=== PATIENT | male | born 1990 | race Caucasian/White ===

== ENCOUNTER 2016-12-01 21:45 | Emergency (ER) | payer SELFPAY ==
[~2016-12-01] VITALS: Ht 180.3 cm; Wt 110.5 kg
[~2016-12-01 21:45] MED LIST: AMOXICILLIN 50500 MG PO; CEPHALEXIN500 M1 PO; NAPROSYN500 MG PO; NO HOME MEDICATIONS; NORCO 325 MG-51 TAB PO; PERCOCET 325 MG1 TA2 PO
[2016-12-01 21:52] VITALS: TEMP 97.7
[2016-12-01 23:24] VITALS: BP 137/84; PULSE 80
== END 2016-12-01 23:28 | disposition home or self-care (01) ==
LOC: COL.ER 21:45
DX: A08.4 Viral intestinal infection, unspecified (principal)

== ENCOUNTER 2016-12-09 09:14 | Emergency (ER) | payer SELFPAY ==
[~2016-12-09] VITALS: Ht 180.3 cm; Wt 109.1 kg
[2016-12-09 09:22] VITALS: BP 160/83; PULSE 90; TEMP 98.4
[2016-12-09] MEDS ORDERED: AMOXICILLIN 50500 MG PO (09:46)
[2016-12-09] MEDS ORDERED: ULTRAM 50MG TAB50 MG PO (09:46)
== END 2016-12-09 09:56 | disposition home or self-care (01) ==
LOC: COL.ER 09:14
DX: K03.81 Cracked tooth (principal); K08.89 Other specified disorders of teeth and supporting structures; F17.210 Nicotine dependence, cigarettes, uncomplicated

== ENCOUNTER 2020-02-14 11:09 | Emergency (ER) | payer SELFPAY ==
[~2020-02-14] VITALS: Ht 180.3 cm; Wt 113.6 kg
[~2020-02-14 11:09] MED LIST changes: +ULTRAM 50MG TAB50 MG PO
[2020-02-14 11:13] VITALS: TEMP 97.9
[2020-02-14 11:57] VITALS: BP 139/75; PULSE 99
== END 2020-02-14 11:54 | disposition home or self-care (01) ==
LOC: COL.ER 11:09
DX: S60.211A Contusion of right wrist, initial encounter (principal); S60.011A Contusion of right thumb without damage to nail, initial encounter; W18.2XXA Fall in (into) shower or empty bathtub, initial encounter; Y92.009 Unspecified place in unspecified non-institutional (private) residence as the place of occurrence of the external cause

== ENCOUNTER 2021-05-10 17:12 | Emergency (ER) | payer SELFPAY ==
[~2021-05-10] VITALS: Ht 180.3 cm; Wt 118.2 kg
[2021-05-10 20:05] VITALS: BP 138/64; PULSE 88; TEMP 97.9
== END 2021-05-10 20:10 | disposition home or self-care (01) ==
LOC: COL.ER 17:12
DX: R07.81 Pleurodynia (principal); J45.909 Unspecified asthma, uncomplicated; E66.9 Obesity, unspecified; F17.210 Nicotine dependence, cigarettes, uncomplicated
CPT/HCPCS: J1885